=== PATIENT | male | born 1985 | race Caucasian/White ===

== ENCOUNTER 2018-04-20 21:46 | Inpatient (IN) | payer SELFPAY ==
[~2018-04-20] VITALS: Ht 182.9 cm; Wt 76.3 kg
[2018-04-20 22:03] LABS: BASOPHILS % (AUTO) 0.2 % (0.0-2.0); EOSINOPHILS % (AUTO) 1.8 % (1.0-6.0); HEMOGLOBIN 15.2 g/dL (13.5-17.5); LYMPHOCYTES % (AUTO) 21.3 % (22.0-44.0); MEAN CORPUSCULAR HEMOGLOBIN 32.1 pg (26.0-34.0); MEAN CORPUSCULAR HGB CONC 34.7 G/dL (31.0-37.0); MEAN CORPUSCULAR VOLUME 93 fL (80-100); MONOCYTES # (AUTO) 0.7 K/uL (0.1-1.0); MONOCYTES % (AUTO) 7.2 % (2.0-9.0); NEUTROPHILS # (AUTO) 6.5 K/uL (1.8-7.7); NEUTROPHILS % (AUTO) 69.5 % (40.0-70.0); PLATELET COUNT (AUTO) 270 K/uL (150-450); RED BLOOD CELL COUNT(AUTO) 4.75 MIL/uL (4.50-5.90)
[2018-04-20 22:11] LABS: ANION GAP 4 mmol/L (8-16); CALCIUM, TOTAL 8.9 mg/dL (8.8-10.5); CARBON DIOXIDE 28 mmol/L (22-29); CHLORIDE 105 mmol/L (98-107); CREATININE 0.94 mg/dL (0.60-1.30); GLOMERULAR FILTR. RATE CALC > 60 mL/min (>60); GLUCOSE,RANDOM 102 mg/dL (70-110); POTASSIUM 4.2 mmol/L (3.5-5.1); SODIUM SERUM 137 mmol/L (136-145); UREA NITROGEN, BLOOD 20 mg/dL (7-18)
[2018-04-20 22:16] LABS: ALANINE AMINOTRANSFERASE 27 U/L (12-78); ALKALINE PHOSPHATASE 53 U/L (46-116); ASPARTATE AMINOTRANSFERASE 18 U/L (15-37); BILIRUBIN,TOTAL 0.2 mg/dL (0.1-1.0); TOTAL PROTEIN, SERUM 7.5 g/dL (6.4-8.2)
[2018-04-20 22:26] LABS: AMPHET/METH SCREEN,URINE NEGATIVE (NEGATIVE); BARBITURATE SCREEN, URINE NEGATIVE (NEGATIVE); BENZODIAZEPINES SCREEN,URINE NEGATIVE (NEGATIVE); CANNABINOID SCREEN,URINE POSITIVE (NEGATIVE); COCAINE SCREEN,URINE NEGATIVE (NEGATIVE); METHADONE SCREEN, URINE NEGATIVE (NEGATIVE); OPIATE SCREEN,URINE NEGATIVE (NEGATIVE)
[2018-04-20 22:36] LABS: PHENCYCLIDINE SCREEN,URINE NEGATIVE (NEGATIVE)
[2018-04-20] MEDS ORDERED: LORazepam 2 MG TABLET PO PRN (23:00)
[2018-04-20] MEDS ORDERED: ZOLPIDEM TARTRATE 10 MG TABLET PO PRN (23:00)
[2018-04-20] MEDS ORDERED: HALOPERIDOL 5 MG TABLET PO PRN (23:00)
[2018-04-20 23:31] LABS: CHOL/HDL RATIO 2.8 (4.2-7.3); CHOLESTEROL 140 mg/dL (131-200); FREE T4 (FREE THYROXINE) 0.93 ng/dL (0.76-1.46); HDL CHOLESTEROL 50 mg/dL (40-60); LDL CHOL (CALC.) 82 mg/dL (0-130); THYROID STIMULATING HORMONE 2.12 uIU/mL (0.36-3.74); TRIGLYCERIDES 42 mg/dL (15-150)
[2018-04-21 00:47] VITALS: BP 109/62
[2018-04-21 09:14] LABS: APPEARANCE,URINE CLEAR (CLEAR); BILIRUBIN,URINE NEGATIVE (NEGATIVE); GLUCOSE, URINE (UA) NEGATIVE (NEGATIVE); KETONES,URINE NEGATIVE (NEGATIVE); LEUKOCYTE ESTERASE ,URINE NEGATIVE (NEGATIVE); NITRATE,URINE NEGATIVE (NEGATIVE); OCCULT BLOOD,URINE NEGATIVE (NEGATIVE); PH,URINE 5.5 (5.0-8.0); PROTEIN,URINE NEGATIVE (NEGATIVE); UROBILINOGEN,URINE 0.2 mg/dL (<=1.0)
[2018-04-21 09:20] LABS: RBC,URINE None Seen /HPF (0-2)
[2018-04-21 09:21] LABS: BACTERIA,URINE None Seen /HPF (None Seen); SQUAMOUS EPITHELIAL CELL,UR Rare /LPF (None Seen); WBC,URINE 0-2 /HPF (0-5)
[2018-04-21 12:35] VITALS: BP 128/73
[2018-04-21 16:22] VITALS: BP 121/61
[2018-04-21] MEDS: MIRTAZAPINE 15 MG TABLET PO SCH (20:24)
[2018-04-22 13:45] VITALS: BP 120/70
[2018-04-22 17:57] VITALS: BP 114/68
[2018-04-22] MEDS: MIRTAZAPINE 15 MG TABLET PO SCH (20:31)
[2018-04-23 08:00] VITALS: BP 125/70
[2018-04-23 16:30] VITALS: BP 123/70
[2018-04-23] MEDS: MIRTAZAPINE 15 MG TABLET PO SCH (21:00)
[2018-04-24 08:55] VITALS: BP 119/63
[2018-04-24] MEDS ORDERED: MIRT15 PO (11:05)
== END 2018-04-24 12:51 | disposition home or self-care (01) | DRG 885 ==
LOC: EMS 21:48 → 3EI 23:39
PROVIDERS: ADMIT Psychiatry & Neurology Psychiatry; ATTEND Psychiatry & Neurology Psychiatry
DX: F33.2 Major depressive disorder, recurrent severe without psychotic features (principal); R45.851 Suicidal ideations; G47.00 Insomnia, unspecified; F19.90 Other psychoactive substance use, unspecified, uncomplicated; F17.200 Nicotine dependence, unspecified, uncomplicated; F10.10 Alcohol abuse, uncomplicated; Z71.41 Alcohol abuse counseling and surveillance of alcoholic; Z91.5 Personal history of self-harm; Z71.51 Drug abuse counseling and surveillance of drug abuser
CPT/HCPCS: 83036; 84439; 84443; 99285; 99406; G0480

== ENCOUNTER 2021-08-06 21:53 | Emergency (ER) | payer MEDICAID ==
[~2021-08-06] VITALS: Ht 182.9 cm; Wt 84.9 kg
[~2021-08-06 21:53] MED LIST: MIRT-89 PO
[2021-08-06 22:50] VITALS: BP 133/88
== END 2021-08-06 23:00 ==
LOC: EMS 21:55
DX: F41.9 Anxiety disorder, unspecified (principal); R07.9 Chest pain, unspecified; F19.90 Other psychoactive substance use, unspecified, uncomplicated; Z87.891 Personal history of nicotine dependence
CPT/HCPCS: 99283; Z7502